=== PATIENT | female | born 1970 ===

== ENCOUNTER 2016-12-13 14:13 | Emergency (ER) | payer OTHER ==
[2016-12-13 14:42] VITALS: RESP 30; TEMP 97.4
[2016-12-13 14:58] LABS: BASOPHILS % (AUTO) 1 % (0-3); EOSINOPHILS % (AUTO) 1 % (0-9); HEMATOCRIT 37 % (35-47); MEAN CORPUSCULAR HGB CONC 34.6 gm/dl (32.0-36.0); MEAN CORPUSCULAR VOLUME 89 fL (81-99); NEUTROPHILS % (AUTO) 66.1 % (37-80)
[2016-12-13] MEDS: SODIUM CHLORIDE 0.9% FLUSH 10 ML SOL IV PRN ×2 (15:10→15:15)
[2016-12-13] MEDS ORDERED: ONDANSETRON HCL 4 MG/2 ML SOL ONE (15:12)
[2016-12-13] MEDS ORDERED: ONDANSETRON HCL 4 MG/2 ML SOL IV ONE (15:15)
[2016-12-13 15:18] LABS: ALBUMIN 3.4 gm/dl (3.4-5.0); POTASSIUM 3.1 mMol/L (3.5-5.1); THYROID STIMULATING HORMONE 10.332 uIU/ml (0.358-3.740)
[2016-12-13 17:33] VITALS: O2SAT 97
[2016-12-13 17:35] VITALS: BP 136/73; PULSE 72
== END 2016-12-13 16:32 | disposition home or self-care (01) ==
LOC: ED 14:13
DX: M25.562 Pain in left knee (principal); F10.129 Alcohol abuse with intoxication, unspecified; Y90.8 Blood alcohol level of 240 mg/100 ml or more; E03.9 Hypothyroidism, unspecified
CPT/HCPCS: 99285 ×3; 71010; 73560; 80053; 80307; 84443; 85025; J2405; 36415; 96374; 99284

== ENCOUNTER 2017-06-22 09:43 | Outpatient (CLI) | payer OTHER | END 2017-06-22 09:44 | disposition home or self-care (01) | LOC: CONVCARE 09:43 | PROVIDERS: ATTEND Orthopaedic Surgery | DX: S82.62XA Displaced fracture of lateral malleolus of left fibula, initial encounter for closed fracture (principal); S93.492A Sprain of other ligament of left ankle, initial encounter; S93.412A Sprain of calcaneofibular ligament of left ankle, initial encounter | CPT/HCPCS: 73700 ==

== ENCOUNTER 2017-07-27 06:52 | Day surgery (SDC) | payer OTHER ==
[2017-07-27] MEDS ORDERED: BUPIVACAINE HCL 0.5% MPF 10 ML SOL ONE (07:28)
[2017-07-27] MEDS ORDERED: PROPOFOL 500 MG/50 ML EMU IV ONE (07:34)
[2017-07-27] MEDS ORDERED: DEXAMETHASONE 20 MG/5 ML (4 MG/ML SOL) ONE (07:34)
[2017-07-27] MEDS ORDERED: METOCLOPRAMIDE HYDROCHLORIDE 5 MG/ML SOL ONE (07:34)
[2017-07-27] MEDS ORDERED: ONDANSETRON HCL 4 MG/2 ML SOL ONE (07:34)
[2017-07-27] MEDS ORDERED: FENTANYL 100MCG/2ML SOL ONE (07:35)
[2017-07-27] MEDS ORDERED: MIDAZOLAM 2 MG/2 ML SOL ONE ×2 (07:35→08:47)
[2017-07-27] MEDS ORDERED: CEFAZOLIN SODIUM 1 GM PDS ONE (09:11)
[2017-07-27 14:19] VITALS: BP 108/60; PULSE 65; RESP 16; TEMP 97.6; O2SAT 97
== END 2017-07-27 15:00 | disposition home or self-care (01) ==
LOC: SURG 06:52
PROVIDERS: ATTEND Orthopaedic Surgery
DX: S82.62XK Displaced fracture of lateral malleolus of left fibula, subsequent encounter for closed fracture with nonunion (principal); S93.492A Sprain of other ligament of left ankle, initial encounter
CPT/HCPCS: 73600; 76000; J0690; J1100; J2250; J2405; J2765; J3010; A6402; J2704

== ENCOUNTER 2017-08-31 10:37 | Outpatient (CLI) | payer OTHER ==
[2017-07-27 14:19] VITALS: O2SAT 97
== END 2017-08-31 10:38 | disposition home or self-care (01) ==
LOC: CONVCARE 10:37
PROVIDERS: ATTEND Orthopaedic Surgery
DX: S93.492D Sprain of other ligament of left ankle, subsequent encounter (principal); S93.412D Sprain of calcaneofibular ligament of left ankle, subsequent encounter; S82.832K Other fracture of upper and lower end of left fibula, subsequent encounter for closed fracture with nonunion; Z98.890 Other specified postprocedural states
CPT/HCPCS: 73610

== ENCOUNTER 2018-04-11 08:15 | Day surgery (SDC) | payer OTHER ==
[~2018-04-11 08:15] MED LIST: LIDOCAINE HCL 1% 5 ML ONE; PROPOFOL 500 MG/50 ML EMU IV ONE
[2018-04-11 09:54] VITALS: O2SAT 99
[2018-04-11 10:14] VITALS: BP 141/83; PULSE 59; RESP 20; TEMP 98
== END 2018-04-11 10:25 | disposition home or self-care (01) ==
LOC: SURG 08:15
PROVIDERS: ATTEND Surgery
DX: Z12.11 Encounter for screening for malignant neoplasm of colon (principal); D12.5 Benign neoplasm of sigmoid colon; D12.4 Benign neoplasm of descending colon
CPT/HCPCS: J2704